=== PATIENT | female | born 1995 | race Two or more races ===

== ENCOUNTER 2019-07-03 05:31 | Emergency (ER) | payer OTHER ==
[~2019-07-03] VITALS: Ht 149.9 cm; Wt 45.4 kg
--- NOTE | 2019-07-03 05:42 | NUR ---
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 PT STATES "I PLACED A GLASS OF WATER NEXT TO MY DILUTED MEDICAL REGISTRAR TO CLEAN MY DOG PEE AND I DON'T KNOW WHAT'S KIND OF CHEMICAL IS IN IT". PT DENIES IS OR HI. PT AAOX4 NO ACUTE DISTRESS NOTED, RESP EVEN AND UNLABORED. PENDING ER MD ADEN.
--- NOTE | 2019-07-03 05:51 | NUR ---
URINE SAMPLE COLLECTED.
[2019-07-03 06:39] VITALS: BP 131/68
--- NOTE | 2019-07-03 06:39 | NUR ---
Patient discharged to home in stable condition. Written and verbal after care instructions given. Patient verbalizes understanding of instruction.
== END 2019-07-03 06:40 | disposition home or self-care (01) ==
LOC: ER 05:31
DX: Z77.098 Contact with and (suspected) exposure to other hazardous, chiefly nonmedicinal, chemicals (principal); R11.2 Nausea with vomiting, unspecified